=== PATIENT | male | born 1955 | race Caucasian/White ===

== ENCOUNTER 2018-12-09 20:59 | Observation (INO) | payer OTHER ==
[~2018-12-09] VITALS: Ht 170.2 cm; Wt 131.5 kg
[2018-12-09 21:06] VITALS: Ht 170.2 cm; Wt 131.5 kg
--- NOTE | 2018-12-09 21:09 | NUR ---
EKG IN PROGRESS.
[2018-12-09 21:36] LABS: BASOPHIL % 1.6 % (0-2); PLATELET COUNT 317 x10^3mcL (130-400); RED CELL DISTRIBUTION WIDTH 13.6 % (11.5-14.5)
[2018-12-09 21:47] LABS: CALCIUM 9.3 mg/dL (8.5-10.1); CARBON DIOXIDE 32.1 mmol/L (21-32); CHLORIDE SERUM 101 mmol/L (98-107); CREATININE SERUM 0.9 mg/dL (0.7-1.3); GFR1 > 60 mL/min; GLUCOSE SERUM 266 mg/dL (74-106); SODIUM SERUM 140 mmol/L (136-145)
[2018-12-09 21:52] LABS: ALBUMIN 3.7 g/dL (3.4-5.0); ALKALINE PHOSPHATASE 74 U/L (46-116); ALT/SGPT 42 U/L (16-63); AST/SGOT 19 U/L (15-37); BILIRUBIN TOTAL 0.39 mg/dL (0.20-1.00); TOTAL PROTEIN, SERUM 7.2 g/dL (6.4-8.2)
--- NOTE | 2018-12-09 22:11 | NUR ---
PT RESTING IN BED, AAOX4 WITH C/O TIGHTNESS-LIKE CP 8/10 RADIATING TO LT CHEST/SHOULDER WITH SOB X 2 HOURS. PT DENIES ANY ASHER/DIZZINESS, N/V/D/C, FEVERS, PAINFUL URINATION, OR RESP ILLNESS AT THIS TIME. PT STATES NO INJURY/TRAUMA. NO SIGNS OF DISTRESS AT THIS TIME. DAUGHTER AT BEDSIDE. PT PLACED ON MONITOR.
--- NOTE | 2018-12-09 23:09 | NUR ---
PT RESTING IN BED WITH FAMILY AT BEDSIDE WITH NO SIGNS OF DISTRESS AT THIS TIME.
[2018-12-09] MEDS ORDERED: GLUCOTROL10 MG PO (23:46)
[2018-12-09] MEDS ORDERED: METFORMIN HYDR500 M1 PO (23:46)
--- NOTE | 2018-12-10 00:08 | NUR ---
PT VISITING WITH FAMILY IN ROOM WITH NO SIGNS OF DISTRESS AT THIS TIME.
[2018-12-10] MEDS ORDERED: LIPI20 PO (00:33)
[2018-12-10] MEDS ORDERED: METFORMIN HCL1000 MG PO (00:33)
--- NOTE | 2018-12-10 01:13 | NUR ---
PT SITTING UP ON EDGE OF BED VISITING WITH FAMILY WITH NO SIGNS OF DISTRESS AT THIS TIME.
--- NOTE | 2018-12-10 01:49 | NUR ---
REPORT GIVEN TO BRAEDEN BAEZA.
--- NOTE | 2018-12-10 02:05 | NUR ---
RECEIVED PT FROM ER VIA BED. ACCOMPANIED BY NURSE AND SON. PT AAOX4, ABLE TO MAKE NEEDS KNOWN. PT C/O HEADACHE PAIN 08/02. PT MEDICATED WITH PRN TYLENOL PER ORDER. ON TELE#21 NSR. DENIES CP/PRESSURE AT THIS TIME. PALPABLE PULSES TO BLE. NO EDEMA NOTED. LUNG SOUNDS CTA ON RA, O2 SAT AT 94%. BREATHING EVEN AND UNLABORED. NO ACUTE DISTRESS NOTED. ABD SOFT AND NONDISTENDED. BOWEL SOUNDS ACTIVE X4 QUAD. LAST BM 12/09/18. DENIES N/V. VOIDS FREELY BRP. AMBULATORY. IV SL TO RIGHT HAND FLUSHING WELL. SITE FREE FROM REDNESS AND SWELLING. BED AT LOWEST POSTION. SIDE RAILS X2 UP. CALL LIGHT WITHING REACH. WILL CONTINUE TO MONITOR.
--- NOTE | 2018-12-10 02:10 | NUR ---
PT TRANSFERRED TO TELE BED 201B VIA RCOHASSET ON MONITOR WITH RN DAMION AND EMT ROYA AT PT SIDE. PT TRANSFERRED WITHOUT INCIDENCE. PT A&OX4,NO ACUTE DSITRESS NOTED, RESP EVEN AND UNLBAORED, SPEAKING IN CLEAR SENTENCES.
[2018-12-10 02:46] VITALS: BP 141/73
--- NOTE | 2018-12-10 03:11 | NUR ---
PT TROP LEVEL OF 0.[address] MULLINS. NEW ORDERS RECEIVED FOR ASPIRIN 81MG DAILY AND LOVENOX 1MG/KG SQ Q12HR.
[2018-12-10 05:45] VITALS: BP 103/72
--- NOTE | 2018-12-10 06:32 | NUR ---
PT SLEPT WELL THROUGHOUT THE NIGHT. BREATHING EVEN AND UNLABORED ON RA. NO ACUTE DISTRESS NOTED. NO CP/PRESSURE DURING NIGHT. ALL NEEDS ASSESSED AND ATTENDED TO. IV SL TO RIGHT HAND. SITE FREE FROM REDNESS AND SWELLING. BED AT LOWEST SETTING. SIDE RAILS X2 UP. CALL LIGHT WITHING REACH. WILL ENDORSE CARE TO AM NURSE.
--- NOTE | 2018-12-10 07:51 | NUR ---
RECEIVED FROM PATIENT FROM FELISHA EVANS. PATIENT SEATED IN BED, NO COMPLAINTS OF PAIN AT THIS TIME. EXPLAINED TO PATIENT PLAN OF CARE FOR TODAY AND PATIENT AGREES. WILL CONTINUE TO MONITOR AND AWAIT FOR DR GREY AND DR MULLINS TO COME IN TO SEE PATIENT. CALL LIGHT IN REACH.
[2018-12-10 09:29] VITALS: BP 149/78
--- NOTE | 2018-12-10 10:06 | NUR ---
DR GREY IN TO SPEAK WITH PATIENT. STATES PATIENT WILL POSSIBLY BE TRANSFERRED TODAY TO [place]. PATIENT VERBALIZES UNDERSTANDING. FAMILY AT BEDSIDE. COMPLAINTS OF ASHER, PRN TYLENOL GIVEN. CALL LIGHT IN REACH AT THIS TIME.
--- NOTE | 2018-12-10 11:38 | NUR ---
PAGED DR GONZALEZ FOR PATIENT DISCHARGE/TRANSFER TO [place], WILL AWAIT CALL BACK. CHARGE NURSE ESTELITA NOTIFIED.
--- NOTE | 2018-12-10 11:55 | NUR ---
SPOKE WITH DR GONZALEZ ABOUT PATIENT TRANSFER. DR GONZALEZ IS AWARE, STATES HE WILL BE IN TODAY AROUND 1300. CHARGE NURSE ESTELITA MADE AWARE.
--- NOTE | 2018-12-10 12:32 | NUR ---
SPOKE WITH FLUTE TEACHER XENIA NARANJO, SHE STATES "ANGIOGRAM FOR [place] TOMORROW WILL BE AT 3 PM." INFORMED HER THAT DR GONZALEZ IS AWARE TO PUT IN TRANSFER ORDERS. ECHO CARDIOGRAM COMPLETED IN ROOM. UPDATE PATIENT AND FAMILY AT THIS TIME.
[2018-12-10 13:00] VITALS: BP 153/56
--- NOTE | 2018-12-10 13:49 | NUR ---
PATIENT AGAIN HAS COMPLAINTS OF ASHER. PRN TYLENOL PO GIVEN. BP 117/61 AT THIS TIME, TEMP IS 99.1, BS IS 186. WILL NOTIFY DR GONZALEZ ONCE HE ARRIVES. WILL CONTINUES TO MONITOR, DENIES CHEST PAIN. CALL LIGHT IN REACH, FAMILY AT BEDSIDE.
[2018-12-10 17:28] VITALS: BP 134/67
[2018-12-10 17:36] VITALS: BP 134/67
--- NOTE | 2018-12-10 18:06 | NUR ---
REPORT GIVEN TO FELISHA CAMPOS AT [facility]. [facility] TRANSPORT IN FOR PATIENT. TRANSFER AGREEMENT SIGNED, TRANSFER PACKET GIVEN TO [facility]. PATIENT WITH BELONGINGS ACCOMPANIED BY SON. PATIENT ON GUERNEY WITH NO COMPLAINTS OF PAIN OR SOB. IV ACCESS REMAINS ON RIGHT HAND 22G. PATIENT OFF UNIT WITH [facility].
== END 2018-12-10 18:05 | disposition short-term general hospital (02) | DRG 281 ==
LOC: ED 20:59 → DU 12-10 00:48
PROVIDERS: ADMIT Internal Medicine
DX: I21.9 Acute myocardial infarction, unspecified (principal); Z68.42 Body mass index [BMI] 45.0-49.9, adult; E11.9 Type 2 diabetes mellitus without complications; I10 Essential (primary) hypertension; E78.5 Hyperlipidemia, unspecified; E78.00 Pure hypercholesterolemia, unspecified; E66.01 Morbid (severe) obesity due to excess calories
CPT/HCPCS: 82962; 83880; G0378; J1650